=== PATIENT | female | born 1960 | race Caucasian/White ===

== ENCOUNTER 2019-03-19 21:03 | Inpatient (IN) | payer OTHER, MEDICAID ==
[~2019-03-19] VITALS: Ht 149.9 cm; Wt 69.5 kg
[2019-03-19 21:08] VITALS: BP_SYST 124
--- NOTE | 2019-03-19 21:19 | NUR ---
Patient to ER bed H1 for evaluation. Side rails up. Report given to Annabel BONILLA.
--- NOTE | 2019-03-19 21:30 | NUR ---
Pt brought by self, A&Ox4, pt presents to ER wih generalized weakness, fever, bodyaches, cap refill <3, ambulatory, respirations even and unlabored, will cont to monitor.
[2019-03-19 21:56] LABS: BASOPHILS # (AUTO) 0.1 K/uL (0.0-0.2); BASOPHILS % (AUTO) 0.7 % (0.0-2.0); EOSINOPHILS # (AUTO) 0.1 K/uL (0.0-0.4); EOSINOPHILS % (AUTO) 0.9 % (0.0-4.0); HEMATOCRIT 31.4 % (36-48); HEMOGLOBIN 10.7 g/dL (12.0-16.0); LYMPHOCYTES # (AUTO) 0.9 K/uL (1.0-5.5); LYMPHOCYTES % (AUTO) 10.2 % (20.5-51.5); MEAN CORPUSCULAR HEMOGLOBIN 30 pg (27-31); MEAN CORPUSCULAR HGB CONC 34 % (32-36); MEAN CORPUSCULAR VOLUME 88 fL (79.0-98.0); MONOCYTES # (AUTO) 0.5 K/uL (0.0-1.0); MONOCYTES % (AUTO) 5.4 % (1.7-9.3); NEUTROPHILS # (AUTO) 7.3 K/uL (1.8-7.7); NEUTROPHILS % (AUTO) 82.8 % (40.0-70.0); PLATELET COUNT (AUTO) 254 K/uL (130-430); RED BLOOD CELL COUNT(AUTO) 3.56 MIL/uL (4.2-6.2); RED CELL DISTRIBUTION WIDTH 15.2 % (9.0-15.0); WHITE BLOOD COUNT (AUTO) 8.8 K/uL (4.8-10.8)
--- NOTE | 2019-03-19 22:03 | NUR ---
Dr Gilliam at bedside examining patient
[2019-03-19] MEDS ORDERED: ONDANSETRON HCL 4 MG/2 ML VIAL IVP ONE (22:15)
[2019-03-19] MEDS ORDERED: NACL 0.9% 1,000 ML IV ONE (22:15)
[2019-03-19] MEDS ORDERED: IBUPROFEN 800 MG TABLET PO ONE (22:15)
[2019-03-19 22:17] LABS: BILIRUBIN,URINE NEGATIVE (NEGATIVE); BLOOD, URINE 1+ (NEGATIVE); CLARITY/URINE SL HAZY (CLEAR); COLOR,URINE YELLOW (YELLOW); GLUCOSE,URINE NEGATIVE (NEGATIVE); KETONES,URINE 2+ (NEGATIVE); LEUKOCYTE ESTERASE ,URINE NEGATIVE (NEGATIVE); NITRITE, URINE NEGATIVE (NEGATIVE); PH,URINE 5.5 (5.0-8.0); PROTEIN URINE 1+ (NEGATIVE); UROBILINOGEN,URINE 0.2 (0.2-1.0)
[2019-03-19] MEDS ORDERED: METF750T PO (22:31)
[2019-03-19] MEDS ORDERED: BENA20TA9 PO (22:31)
[2019-03-19] MEDS ORDERED: INSU100V9 SQ (22:31)
--- NOTE | 2019-03-19 22:31 | NUR ---
Medication reconciliation completed with information provided by pt. Any prior medication reconciliation on file was reviewed and corrected.
[2019-03-19 22:32] LABS: BACTERIA,URINE FEW /HPF (None Seen); FINE GRANULAR CASTS,URINE 0-10 /LPF (None Seen); OTHER CASTS, URINE WBC CASTS 1+ /LPF (None Seen); RBC,URINE 0-3 /HPF (0-3)
[2019-03-19 22:33] LABS: MUCUS,URINE 1+ /LPF (None Seen)
[2019-03-19 22:45] LABS: CALCIUM 8.3 mg/dL (8.4-11.0); CREATININE 1.4 mg/dL (0.55-1.30); POTASSIUM 3.7 mmol/L (3.5-5.1)
[2019-03-19 22:49] LABS: ALBUMIN 2.9 g/dL (3.4-4.8); TOTAL BILIRUBIN 0.5 mg/dL (0.0-1.0)
[2019-03-19 23:00] LABS: FREE T4 (FREE THYROXINE) 1.2 ng/dl (0.8-1.5); THYROID STIMULATING HORMONE 1.79 uIu/mL (0.36-3.74)
--- NOTE | 2019-03-19 23:03 | NUR ---
Pelvic exam performed by Dr Gilliam with myself at bedside for entire examination. Patient tolerated procedure . Patient assisted to position of comfort after examination.
--- NOTE | 2019-03-19 23:04 | NUR ---
Pt A&Ox4, respirations even and unlabored, cap refill <3.
[2019-03-19] MEDS ORDERED: cefTRIAXone 1 GM IVPB PREMIX 50 ML IV ONE (23:15)
--- NOTE | 2019-03-19 23:15 | NUR ---
Report given to Trev BONILLA
--- NOTE | 2019-03-20 00:38 | NUR ---
Dr. Gilliam at bedside discussing diagnosis.
[2019-03-20] MEDS ORDERED: NS 500 ML IV ONE (00:45)
[2019-03-20] MEDS ORDERED: ACETAMINOPHEN 325 MG TABLET PO PRN ×2 (00:45→15:45)
--- NOTE | 2019-03-20 01:44 | NUR ---
diPatient will be admitted to care of Dr. Schmid. Admitted to Med Surg unit. Will go to room 101B. Belongings list completed. Summary report printed. Report will be given at bedside.
--- NOTE | 2019-03-20 01:52 | NUR ---
ADMISSION: The patient, GIA PEACE, 58 y/o, F admitted by AFIA MEEKS MD, was given written information regarding hospital policies, unit procedures and contact persons. Primary RN at bedside.
--- NOTE | 2019-03-20 02:07 | NUR ---
Transfer to med surg via ACLS protocol. Licensed nurse present. IV present no signs or symptoms of infiltration.
[2019-03-20 02:10] VITALS: BP_SYST 95
[2019-03-20] MEDS ORDERED: KCL 20 mEq in NS 1000 mL 1,000 ML IV ONE (03:00)
[2019-03-20] MEDS ORDERED: PIPERACILLIN/TAZOBACTAM 3.375 GM/VIAL (ZOSYN) IV ONE (03:00)
[2019-03-20] MEDS: KCL 20 mEq in NS 1000 mL 1,000 ML IV SCH ×3 (03:01→18:22)
--- NOTE | 2019-03-20 03:26 | NUR ---
Patient awake alert TELEMETRY NSR 74 - 78 BPM Verbally indicative on Room air 02 SAT 96 % chest movement symmetrical skin dry warm PROCEDURES EXPLAINED call albrecht with patient .
--- NOTE | 2019-03-20 04:11 | NUR ---
Patient Resting HOB elevated SNACKS PO GIVEN & TOLERATE , WATER PO SIPS also tolerate call albrecht with patient no acute distress / .
[2019-03-20] MEDS: PIPERACILLIN/TAZO 3.375 GM in NS 50 ML IV SCH ×3 (05:44→17:13)
--- NOTE | 2019-03-20 06:32 | NUR ---
Patient Resting HOB elevated is verbally Responsive skin dry warm no acute distress .
--- NOTE | 2019-03-20 07:15 | NUR ---
INITIAL NOTE BEDSIDE SBAR REPORT RECEIVED BY CLOCK SMITH RN. PT RESTING IN BED. COMPLAINING OF FEELING COLD DUE TO ROOM TEMP. GAVE PT EXTRA WARM BLANKET. PT DENIES ANY N/V OR DISCOMFORT AT THIS TIME. IVF INFUSING WELL. CALL LIGHT WITHIN REACH, BED IN LOW AND LOCKED POSITION WITH BED ALARM ON.
[2019-03-20 08:29] VITALS: BP_SYST 148
--- NOTE | 2019-03-20 09:30 | NUR ---
RN ROUNDS PT RESTING IN BED, DENIES ANY N/V OR DISCOMFORT AT THIS TIME.
--- NOTE | 2019-03-20 11:15 | NUR ---
RN ROUNDS ASSISTED PT TO RESTROOM, STEADY GAIT, DENIES ANY N/V OR DIZZINESS. REPOSITIONED BACK TO BED. PT TOLERATED WELL.
[2019-03-20 12:04] VITALS: BP_SYST 114
--- NOTE | 2019-03-20 13:15 | NUR ---
RN ROUNDS PT RESTING, DAUGHTER AT BEDSIDE, PT DENIES ANY N/V OR HIGH TEMP. WILL CONTINUE TO MONITOR.
--- NOTE | 2019-03-20 13:57 | NUR ---
DCPA/Desktop Operator Contact [facility] met with Pt bedside for DCPA. She supports herself through [employer], has [employer] and [employer]. Pt. reported that her correct is 11/29/1959 not 1960. She reported that she is ambulatory, independent with her ADL's, no DME utilized at home. She reported that she has diabetes 25 years and is complaint with her care. She would like to return home with her family and daughter. Pt. has no previous HH and SNF in the past. She had no further questions or concerns. CM/DCP/SS will remain available as needed. Addendum: 03/20/19 at 1403 by Xander Leblanc [facility] Pt. is [place] Speaking, DCPA was conducted in Pt. primary language.
--- NOTE | 2019-03-20 14:55 | NUR ---
DR. JEANNA KLEIN AT BEDSIDE EXAMINING PT. INFORMED MD OF ALBUMIN 2.9, CA 8.3, PT NEEDS MED RECONCILED.
--- NOTE | 2019-03-20 15:30 | NUR ---
RN ROUNDS PT RESTING, BREATHING EVEN AND UNLABORED, NO ACUTE DISTRESS NOTED.
[2019-03-20] MEDS ORDERED: INSULIN GLARGINE 100 UNITS/ML 10 ML VIAL SQ ONE (15:45)
[2019-03-20 16:37] VITALS: BP_SYST 121
--- NOTE | 2019-03-20 18:00 | NUR ---
HIGH TEMP PT COMPLAINING OF FEELING HOT. TEMP 100.0 F. OFFERED ICE PACK, PT AGREED. PRN TYLENOL INDICATED FOR FEVER. PT WOULD LIKE TO WAIT A BIT MORE UNTIL TAKING TYLENOL.
[2019-03-20] MEDS: INSULIN REGULAR, HUMAN 100 UNITS/ML, 10 ML VIAL (humuLIN R) SUBCUT PRN (18:33)
--- NOTE | 2019-03-20 18:48 | NUR ---
RN ROUND PT AWAKE, DENIES ANY N/V/FEVER, DAUGHTER AT BEDSIDE.
--- NOTE | 2019-03-20 19:29 | NUR ---
CLOSING NOTE BEDSIDE SBAR REPORT GIVEN TO PET CARE ATTENDANT RN. PT AWAKE, DENIES ANY FEVER/V/OR PAIN. TEMP 98.5 AT THIS TIME. IVF INFUSING WELL. CALL LIGHT WITHIN REACH, BED IN LOW LOCKED POSITION WITH BED ALARM ON. PT CARE ENDORSED TO PET CARE ATTENDANT RN.
--- NOTE | 2019-03-20 19:35 | NUR ---
OPENING NOTES Patient is resting, HOB elevated, family at bedside. No signs of acute respiratory distress observed. Vitals within normal limits. Oriented on plan of care and importance of IV antibiotic therapy. Call light within reach, bed alarm refused after educating patient on risks and benefits and patient verbalizes understanding. Will continue to monitor.
[2019-03-20 20:00] VITALS: BP_SYST 103
[2019-03-20] MEDS ORDERED: ENOXAPARIN SODIUM 30 MG/0.3 ML SYRINGE SUBCUT SCH (21:00)
--- NOTE | 2019-03-20 22:46 | NUR ---
Patient is resting, no signs of acute respiratory distress. Will continue to monitor.
--- NOTE | 2019-03-21 00:21 | NUR ---
IV medication provided, patient is resting, no signs of pain or SOB observed. Will continue to monitor.
[2019-03-21 00:35] VITALS: BP_SYST 95
[2019-03-21] MEDS: PIPERACILLIN/TAZO 3.375 GM in NS 50 ML IV SCH ×3 (00:41→11:25)
[2019-03-21] MEDS: KCL 20 mEq in NS 1000 mL 1,000 ML IV SCH ×3 (00:48→14:01)
--- NOTE | 2019-03-21 02:35 | NUR ---
Assisted patient to the restroom, steady gait. No signs of any SOB or temperature. Will continue to monitor.
--- NOTE | 2019-03-21 04:15 | NUR ---
Patient is asleep, no signs of SOB or discomfort. Safety precautions in place. Bed alarm on, will continue to monitor.
[2019-03-21 06:39] LABS: BASOPHILS % (AUTO) 0.3 % (0.0-2.0); EOSINOPHILS # (AUTO) 0.1 K/uL (0.0-0.4); EOSINOPHILS % (AUTO) 0.8 % (0.0-4.0); HEMATOCRIT 26.4 % (36-48); HEMOGLOBIN 8.8 g/dL (12.0-16.0); LYMPHOCYTES # (AUTO) 1.6 K/uL (1.0-5.5); LYMPHOCYTES % (AUTO) 21.3 % (20.5-51.5); MEAN CORPUSCULAR HEMOGLOBIN 30 pg (27-31); MEAN CORPUSCULAR HGB CONC 33 % (32-36); MEAN CORPUSCULAR VOLUME 89 fL (79.0-98.0); MONOCYTES # (AUTO) 0.6 K/uL (0.0-1.0); MONOCYTES % (AUTO) 7.8 % (1.7-9.3); NEUTROPHILS # (AUTO) 5.2 K/uL (1.8-7.7); NEUTROPHILS % (AUTO) 69.8 % (40.0-70.0); PLATELET COUNT (AUTO) 195 K/uL (130-430); RED BLOOD CELL COUNT(AUTO) 2.98 MIL/uL (4.2-6.2); WHITE BLOOD COUNT (AUTO) 7.5 K/uL (4.8-10.8)
--- NOTE | 2019-03-21 06:51 | NUR ---
CLOSING NOTES Patient is resting, no signs of acute respiratory distress observed. Assisted patient to the restroom. Patient refuses bed alarm after patient education provided and patient verbalizes understanding. All needs met throughout shift. Bed at lowest position, call light within reach. Will endorse care to oncoming shift.
[2019-03-21 06:53] LABS: CALCIUM 7.6 mg/dL (8.4-11.0); POTASSIUM 4.1 mmol/L (3.5-5.1)
--- NOTE | 2019-03-21 07:45 | NUR ---
OPENING NOTE: RECEIVED PATIENT FROM NOC RN. PATIENT RESTING IN BED, PATIENT IS AAOX4. VERBALLY RESPONSIVE WITH CLEAR SPEECH. PATIENT IS ON ROOM, SATURATING WITHIN NORMAL LIMITS. NO ACUTE SIGNS OF RESP DISTRESS, NO SOB. BREATHING EVEN AND UNLABORED. IV INTACT AND PATENT, NO REDNESS/SWELLING TO SITE. ALL NEEDS MET. EDUCATED PATIENT WITH TODAY'S PLAN OF CARE, VERBALIZED UNDERSTANDING. BED AT LOWEST POSITION, CALL LIGHT IN REACH, WILL CONTINUE TO MONITOR.
[2019-03-21 08:00] VITALS: BP_SYST 115
[2019-03-21] MEDS ORDERED: INSULIN GLARGINE 100 UNITS/ML 10 ML VIAL SQ SCH (09:00)
--- NOTE | 2019-03-21 10:00 | NUR ---
ROUNDING: NO CHANGE IN PATIENT STATUS, CONTINUE TO MONITOR.
[2019-03-21] MEDS: INSULIN REGULAR, HUMAN 100 UNITS/ML, 10 ML VIAL (humuLIN R) SUBCUT PRN (11:27)
--- NOTE | 2019-03-21 12:00 | NUR ---
ROUNDING: PATIENT SITTING UP EATING LUNCH, TOLERATING WELL. PATIENT IS AAOX4, NO ACUTE SIGNS OF RESP DISTRESS, NO SOB. BREATHING EVEN AND UNLABORED. SAFETY PRECAUTIONS IMPLEMENTED. WILL CONTINUE TO MONITOR.
[2019-03-21 12:13] VITALS: BP_SYST 106
--- NOTE | 2019-03-21 16:00 | NUR ---
ROUNDING: NO CHANGE IN PATIENT STATUS, CONTINUE TO MONITOR.
[2019-03-21 16:28] VITALS: BP_SYST 114
--- NOTE | 2019-03-21 18:00 | NUR ---
PATIENT REFUSED CARE: PATIENT REFUSED 1800 ZOSYN DOSE, PER PATIENT SHE DOES NOT WANT ANYMORE ANTIBIOTIC AND DOES NOT WANT TO BE HERE ANYMORE. SHE STATED THAT THE DOCTOR CAME TO SEE HER AND WANTS TO GO HOME. SPOKE TO DR. MEEKS, PER DR. MEEKS "IF SHE DOES NOT WANT ANTIBIOTIC, LET HER SIGN OUT AMA". PATIENT WANTS TO SIGN AMA.
--- NOTE | 2019-03-21 18:29 | NUR ---
AMA: Patient does not wish to proceed with medical care recommended by [facility]. Patient given information related to possible complications, up to and including , which could occur as a result of leaving hospital at this time. Patient verbalizes understanding of risks involved leaving against medical advice. Patient has signed AMA form.
--- NOTE | 2019-03-21 18:30 | NUR ---
PATIENT DECIDED TO COME BACK: PATIENT DECIDED TO COME BACK AND WAIT FOR DISCHARGE PAPERWORK.
[2019-03-21 19:45] VITALS: BP_SYST 121
== END 2019-03-21 18:47 | disposition left against medical advice (07) | DRG 872 ==
LOC: SED 21:03 → SMU 03-20 00:34 → STU 03-20 01:38
PROVIDERS: ADMIT Family Medicine; ATTEND Family Medicine
DX: A41.9 Sepsis, unspecified organism (principal); E44.0 Moderate protein-calorie malnutrition; E87.1 Hypo-osmolality and hyponatremia; N39.0 Urinary tract infection, site not specified; N17.9 Acute kidney failure, unspecified; E86.0 Dehydration; I10 Essential (primary) hypertension; E11.9 Type 2 diabetes mellitus without complications; Z53.21 Procedure and treatment not carried out due to patient leaving prior to being seen by health care provider; F32.9 Major depressive disorder, single episode, unspecified; E78.00 Pure hypercholesterolemia, unspecified; F17.210 Nicotine dependence, cigarettes, uncomplicated; Z68.31 Body mass index [BMI] 31.0-31.9, adult; Z79.899 Other long term (current) drug therapy
CPT/HCPCS: 36415; 76830-TC; 76857; 80048; 80053; 81000-TC; 82962; 83605; 83735-TC; 84439; 84443-TC; 84484; 85025; 86710; 87040-TC; 87086; 87210-TC; 93005; 96361; 96365; 96375; 99285; G0378; J0696; J1650; J1815; J2405; J2543; J3480